=== PATIENT | female | born 1980 | race African-American/Black ===

== ENCOUNTER 2023-04-16 17:00 | Emergency (ER) | payer BC | END 2023-04-16 19:32 | disposition home or self-care (01) | LOC: CSHERS 17:00 → EEVIPCON 17:00 → CSHERS 19:32 | DX: S10.93XA Contusion of unspecified part of neck, initial encounter (principal); F17.210 Nicotine dependence, cigarettes, uncomplicated; Y04.8XXA Assault by other bodily force, initial encounter | CPT/HCPCS: 70490 ==